=== PATIENT | female | born 1975 | race Two or more races ===

== ENCOUNTER → 2016-08-22 | Outpatient (CLI) | payer OTHER ==
[~2016-08-22] MED LIST: ALBUTEROL17 GM INH; BACITRACIN30 GM TOP; BACTRIM DS TABL1 TAB PO; BENZONATATE PO; CIPRO PO; FLEXERIL PO; NAPROXEN PO; PREDNISONE PO; PREDNISONE10 MG PO
--- NOTE | ~2016-08-22 | US98 ---
[facility] A Service of [facility] & [facility] RADIOLOGY TEXT RESULTS PATIENT: DANIA PINA LOCATION: [facility] : 79 UNIT #: [id number] AGE: [address]: Anita Maxwell APRN SEX: F ORDER DR: [id number] [facility] [address] [place], [place] [address] [id number] O MR#: [id number] Acc #: [id number] NAME: DANIA PINA : 1975 SEX: F STUDY DATE/TIME: 08/22/2016 14:32 UNIT: [facility] ROOM: STUDY DESCRIPTION: US Pelvic Non-OB Complete Attending Physician: Anita Maxwell Aprn Referring Physician: Haylee Mohan M.D. Ordering Physician: Anita Maxwell Aprn Primary Care Physician: Haylee Moahn M.D. MEDICAL IMAGING REPORT This report is preliminary unless electronic signature is present EXAM Pelvic ultrasound INDICATION Pelvic pain and swelling. This has been present for a month. Patient reports this starts in the upper abdomen and then moves to the lower abdomen. Last normal menstrual period was 06/27/2016. TECHNIQUE Watson-scale, color Doppler and spectral Doppler waveform analysis was performed through the pelvis. FINDINGS This patient's endometrium is abnormally thickened, measuring up to 2.1 cm. The significance is uncertain in this premenopausal woman. However, gynecologic referral is recommended. Right ovary is normal in appearance. There is a suggestion of a small hyperechoic lesion on the left ovary measuring up to 2.3 x 1.0 x 1.0 cm. On some of the images, it appears artifactual. Possibility of underlying lesion, however, is not excluded and further evaluation with pelvic MRI is recommended. No free fluid is seen within the cul-de-sac. IMPRESSION 1. Abnormal endometrial thickening measuring up to 2.1 cm. Clinical significance is uncertain in a premenopausal woman; however, I would suggest gynecologic referral, as this can be seen in the setting of endometrial malignancy. 2. Patient with a potential mildly hyperechoic lesion on the left ovary on some images. It appears artifactual however; I would suggest further evaluation with MRI of the pelvis. This would also allow for some additional assessment of the patient's endometrium. [facility] A Service of [facility] RADIOLOGY TEXT RESULTS PATIENT: DANIA PINA LOCATION: [facility] : 79 UNIT #: [id number] AGE: [address]: Anita Maxwell APRN SEX: F ORDER DR: Dictated by... Tierra Gutierrez M.D. THIS IS AN ELECTRONICALLY VERIFIED REPORT Tierra Gutierrez M.D. at 08/23/2016 4:56 PM LENI/sary TD: 08/23/2016 13:58 JOB #: [id number] MEDICAL IMAGING REPORT Page 1 of 1 COPY
== END | disposition home or self-care (01) ==
LOC: CWCC 14:15
DX: R10.2 Pelvic and perineal pain (principal); R19.00 Intra-abdominal and pelvic swelling, mass and lump, unspecified site; R93.8 Abnormal findings on diagnostic imaging of other specified body structures
CPT/HCPCS: 76830; 76856

== ENCOUNTER 2016-12-25 13:32 | Emergency (ER) | payer OTHER ==
[~2016-12-25] VITALS: Ht 160 cm; Wt 59.0 kg
== END 2016-12-25 14:05 | disposition home or self-care (01) ==
LOC: CED 13:32 → CFTX 13:32
DX: R59.0 Localized enlarged lymph nodes (principal); Z88.0 Allergy status to penicillin; Z91.040 Latex allergy status
CPT/HCPCS: 99283